=== PATIENT | male | born 1940 | race Caucasian/White ===

== ENCOUNTER → 2017-02-17 | Outpatient (CLI) | payer OTHER, MEDICARE ==
[~2017-02-17] VITALS: Ht 175.3 cm; Wt 84.4 kg
[~2017-02-17] MED LIST: ALEVE220 M1 PO; ALIGN4 MG PO; ATENOLOL 25 MG25 M1 PO; CALCIUM OYSTER500 MG PO; FISHOIL PO; HYDROCHLOROTHIA25 M1 PO; MULTIVITAMINS PO; NABUMETONE 500500 M1 PO; NEURONTIN 300300 M1 PO; TRAMADOL 50 MG50 MG PO; TYLENOL P.M. E1 EAC3 PO; VITAMINC500 PO
--- NOTE | ~2017-02-17 | HPC ---
[facility] [address] [place] [address] PAIN MANAGEMENT CONSULTATION Name: LAURA ANAYA [facility] [id number] Admission: 02/17/17 Attend Phys: Leif Doty DO Discharge: Date of : 40 Report #: [id number] THIS REPORT FOR: //name// CC: TONYA Doty The patient is a 76-year-old gentleman seen in consultation at the request of Dr. Mtz for evaluation of pain in neck, right shoulder and arm. The patient notes that he has had chronic neck pain for sometime, states "I can live with that." Notes, however, that starting last year without antecedent trauma and overuse, he developed pain in the right shoulder radiating down to the elbow and forearm. He notes instantly that he had some myelopathic symptoms, his feet are cold and "jumpy." This has somewhat resolved with gabapentin. He has been taking 100 mg three times a day. Notes, however, that the right shoulder, arm and neck pain has become more problematic. He had a series of three cervical epidural injections at [facility] in July, August, and September really with no efficacy. Did get an MRI of the cervical spine in September. He has been taking Aleve [id number] three tablets at a time 2-3 times a week with nominal efficacy, typically does this before he plays golf. He notes pain is becoming more and more problematic. REVIEW OF SYSTEMS: Complete review of systems attached to chart, the patient is . Does not smoke or drink alcohol to excess. History of hypertension, treated with atenolol and hydrochlorothiazide. Prior history of "spot" on his lung, diagnosis of tuberculosis, was treated with watchful waiting after three years, no changes and he has been on no therapy for this. He has had a frozen shoulder manipulation and nasal septal reconstruction. No other surgery. He retired in 2001. 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 Pain impact score is fairly low, averaging about 3.4 for all indices queried. PHYSICAL EXAMINATION: GENERAL: Reveals a 5 feet and 9 inches, 84 kilograms gentleman, BMI is 27.5 kilograms per meter squared. VITAL SIGNS: Blood pressure 137/83, pulse is 66, respirations 16, room air oxygen saturation is 96%. NEUROLOGIC: Cranial nerves 2-12 are grossly intact. HEENT: Pupils equal, reactive to light and accommodation. Extraocular muscles are intact. MUSCULOSKELETAL: Cervical range of motion shows grossly positive Lhermitte's with significant decrease in cervical extension. The right triceps strength is obviously diminished compared to the left, about 3/5 versus 4-5/5 for all muscle groups. Hand grasp is symmetric. Deep tendon reflexes showed diminished right biceps, brachioradialis, triceps reflexes are diminished and symmetric. Skin integument is intact. HEART: Regular rhythmical without murmur. LUNGS: Clear to auscultation. EXTREMITIES: Rises from chair using the armrest. Gait is tandem. DTR of the lower extremities notes 2+ patellar and Achilles reflexes. Straight leg raise is negative. [address] [address] PAIN MANAGEMENT CONSULTATION Name: LAURA ANAYA [facility] [id number] Admission: 02/17/17 Attend Phys: Leif Doty DO Discharge: Date of : 40 Report #: [id number] DIAGNOSTIC STUDIES: I personally reviewed images of the cervical MRI from 08/03/2016. He has a focal disk protrusion at C4-C5 with fairly significant central stenosis down about 5 mm. There is moderate bilateral facet stenosis here as well. Posterior disk osteophyte complex below the C5-C6 though the canal appears fairly robust. ASSESSMENT: Symptomatic cervical radiculopathy with dramatic stenosis at C4-C5, having failed conservative therapy at another pain clinic. RECOMMENDATION: Discussion with the patient today about therapeutic options. I think he unfortunately will require surgical decompression. I discussed this at length with the patient. The patient asked me who I would send a family member to for the surgery and I suggested that he follow up with Dr. Kevin Vogel. The patient was discharged today in good and stable condition. No interventional therapy was warranted. I will see him simply on an as needed basis going forward. Thank you for allowing me to participate in this patient's care. <ELECTRONICALLY SIGNED> By: Leif Doty DO 02/20/17 [id number] Leif Doty DO /nt
[2017-02-17 13:23] VITALS: BP 137/83
== END | disposition home or self-care (01) ==
LOC: PAIN 12:31
DX: M54.12 Radiculopathy, cervical region (principal)